=== PATIENT | male | born 1990 | race Hispanic/Latino ===

== ENCOUNTER → 2018-08-23 07:54 | Outpatient (CLI) | payer OTHER, SELFPAY ==
--- NOTE | 2018-08-23 | DI.MRI.S_ITS ---
PROCEDURE: MR HEAD/BRAIN WO/W CON INDICATIONS: Scotoma involving central area, left eye TECHNIQUE: Noncontrast axial T1 spin echo, axial T2 fast spin echo, sagittal and axial FLAIR, coronal T2 fast spin echo, axial gradient echo, axial diffusion and ADC through the brain. After the administration of contrast, axial and coronal 3D VIBE or T1 spin echo with fat saturation through the brain. In this patient, thin section pre-and postcontrast axial fat-saturated T1-weighted images were obtained through the orbits. Coronal and sagittal images were reformatted. COMPARISON: None. FINDINGS: Image quality: Excellent. CSF Spaces: Basal cisterns are patent. No extra-axial fluid collections. Ventricles are normal in size and shape. Brain: No midline shift. No intracranial bleeds or masses. No abnormal intracranial enhancement. The brainstem appears normal. Diffusion-weighted images demonstrate no acute ischemic insults. No chronic ischemic insults. Normal intravascular flow voids are present. Normal masses can be seen. No abnormal enhancement can be seen in the orbits or globes. The optic nerves demonstrate no significant abnormality. Skull and face: Calvarial marrow is normal in signal. Orbits appear normal. Sinuses: There is a mucous retention cyst seen within the right maxillary sinus. 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 Sinuses and mastoids otherwise appear clear. IMPRESSION: No imaging explanation is found for this patient's presenting symptoms. Dictated by: Fernandez Peterson M.D. on 08/23/2018 at 8:40 Approved by: Fernandez Peterson M.D. on 08/23/2018 at 8:42
== END ==
DX: H53.412 Scotoma involving central area, left eye (principal)
CPT/HCPCS: 70553